=== PATIENT | female | born 2005 | race Caucasian/White ===

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

== ENCOUNTER 2025-02-15 12:00 | Outpatient (CLI) | payer BC, SELFPAY | END 2025-02-15 23:59 | disposition home or self-care (01) | LOC: LAB.DROPOF 02-17 08:12 | PROVIDERS: PCP Obstetrics & Gynecology; Visit Provider Obstetrics & Gynecology | DX: O36.5990 Maternal care for other known or suspected poor fetal growth, unspecified trimester, not applicable or unspecified (principal) | CPT/HCPCS: 86403 ==

== ENCOUNTER 2025-02-23 13:04 | Outpatient (CLI) | payer BC, SELFPAY ==
--- NOTE | 2025-02-23 13:00 | US_ITS ---
PROCEDURE: US OB BIOPHYSICAL PROFILE CLINICAL INDICATION: SGA w/CHIQUITA COMPARISON: US US OB MATER TRANSABD ADD from 09/20/2024 US US OB >= 14 WEEKS FETUS from 09/22/2024 US US OB /MATERNAL DETAIL from 10/26/2024 US US OB FOLLOW UP from 12/21/2024 FINDINGS: Transabdominal sonographic images of the uterus were obtained. From her established due date she is 37weeks 1day. The following parameters are obtained: Viable Fetus in the cephalic presentation with a posterior placenta grade 2. Cervix measures 3.87 cm in length Average ultrasound age is 36weeks 1day Estimated weight 2,885g, 6 lb 6 oz Measurements: heart Rate = 152bpm BPD = 36weeks 3days, 46 percentile HC = 35weeks 6days, 6 percentile AC = 36weeks 5days, 51 percent FL = 35weeks 3days, 12 percent HC/AC is 0.97 FL/BPD is 0.77 FL/AC is 0.21 33 percentile Amniotic fluid index: 9.26cm, MVP 4.18 cm Qualitative AFV:2 Breathing movements: 2 Gross Body Movements: 2 Tone: 2 Biophysical profile score: 8 Doppler evaluation of the umbilical artery: SD ratio: 2.25-2.53 normal Resistive index: 0.56 No obvious anomalies evident.Kidneys, profile, stomach, bladder, four-chamber heart, three-vessel cord appear normal. IMPRESSION: 1. Viable fetus in the cephalic presentation with a posterior placenta grade 2. 2. The fluid is within normal limits with an amniotic fluid index 9.26 cm, MVP 4.18 cm. 3. Biophysical profile is 8/8 with good breathing movement and movement seen. 4. SD ratio is normal 2.25-2.53. 5. There has been good interval growth with the fetus currently 33rd percentile. 6. Limited anatomical scan appears normal. Dictated by: Noel Mccormack MD 02/24/2025 09:12 Noel Mccormack MD in OV 02/24/2025 09:12
== END 2025-02-23 23:59 | disposition home or self-care (01) ==
LOC: RAD 13:04
PROVIDERS: PCP Family Medicine; Visit Provider Obstetrics & Gynecology
DX: O36.5930 Maternal care for other known or suspected poor fetal growth, third trimester, not applicable or unspecified (principal); Z3A.37 37 weeks gestation of pregnancy
CPT/HCPCS: 76816; 76819; 76820

== ENCOUNTER 2025-03-13 16:14 | Inpatient (IN) | payer BC, SELFPAY ==
[2025-03-13 16:20] VITALS: BMI 31.8
[2025-03-13 16:59] LABS: Hematocrit 33.6 % (37.0-47.0); Hemoglobin 10.9 g/dL (12.2-16.2); Immature Granulocytes % 0.4 %; Mean Corpuscular HGB Conc 32.4 g/dL (31.8-35.4); Mean Corpuscular Hemoglobin 26.4 pg (27.0-31.2); Mean Corpuscular Volume 81.4 fl (81-99); Nucleated Red Blood Cells % 0 %; Platelet Count 250 K/mm3 (142-424); Red Blood Count 4.13 M/mm3 (4.20-5.40); Red Cell Distribution Width-SD 42.1 fL; White Blood Count 10.9 K/mm3 (4.5-13.0)
[2025-03-13 17:31] VITALS: BP 136/79; PULSE 106; RESP 18; TEMP 37.2; O2SAT 98; BMI 31.8
[2025-03-13 20:04] VITALS: BP 125/76; PULSE 89; RESP 18; TEMP 36.8; O2SAT 98
[2025-03-14] MEDS: ONDANSETRON 4MG/2ML VIAL 4 MG IV ×3 (00:17→21:58)
[2025-03-14] MEDS: LACTATED RINGERS 1000ML 1,000 ML 250 ML IV (00:23)
[2025-03-14] MEDS: BUTORPHANOL TARTRATE 1 MG/ML VIAL IV ×2 (00:24→02:46)
[2025-03-14 00:56] VITALS: BP 123/74; PULSE 84; RESP 16; TEMP 36.7; O2SAT 99
[2025-03-14] MEDS: DEXTROSE 5%-LACTATED RINGERS 1,000 ML 125 ML IV (02:42)
--- NOTE | 2025-03-14 04:31 | EXP.ANES.CKL ---
[facility] Disclaimer: The information contained in this section may have been updated after the patient was seen, as this information can be updated by other users. Medical History Hydronephrosis of right kidney secondary to gravid uterus Flank pain in patient SGA (small for gestational age), , affecting care of mother, antepartum Constipation Vaginal bleeding during Nausea and vomiting during Anxiety disorder affecting , antepartum Panic attacks Anxiety Weight gain Emotional lability Surgical History History of placement of ear tubes Family History Other Alcoholism Cancer Diabetes Hypertension Thyroid disorder Social History (Updated 03/13/25 @ 20:09 by Marlene Valero RN) Smoking Status: Never smoker alcohol intake: never substance use type: denies use current occupational status: unemployed Travel in the last 8 weeks?: None [facility] Anesthesia Checklist Patient Identification Patient Identification: Arm Band Structural Data Admitted From: Inpatient Planned Operative Procedure/s: Labor Epidural Consent for Planned Operative Procedure(s) Verified: Yes Verified Documents: Surgical Consent and History and Physical NPO Status Verified Time NPO: 00:00 Additional verifications Anesthesia Reactions: No Neurological Assessment Level of Consciousness: Awake, Alert and Appropriate Anesthesia Plan Anesthesia Risk discussed: Yes Anesthesia Plan: Verified ASA Class: II Anesthesia Type: Epidural
[2025-03-14 04:40] VITALS: BP 119/51; PULSE 90; RESP 17; TEMP 36.9; O2SAT 100
--- NOTE | 2025-03-14 07:36 | EXP.OB.APHP ---
OB - H&P: HPI Antepartum History of Present Illness Chief complaint: Elective induction of labor History of present illness: Mrs Bettie Carrasquillo is a 19 yo [id number] who presents to [facility] L&D for scheduled elective induction of labor. She has had good care. complicated by anxiety. She admits to irregular contractions. No vaginal bleeding or leakage of fluid. GBS negative. History of Present Criteria for establishing EDC:: LMP confirmed by 1st trimester US care: good care Ultrasounds: normal mid trimester US Obstetrical complications: none Medical complications: none Labs Blood type: O (+) positive Rubella: immune RPR/VDRL: nonreactive GBS status: negative HBsAG: negative PFSH [facility] Disclaimer: The information contained in this section may have been updated after the patient was seen, as this information can be updated by other users. Medical History (Updated 03/14/25 @ 07:46 by Francy Negro DO) with 39 completed weeks gestation Encounter for elective induction of labor Hydronephrosis of right kidney Flank pain in patient Constipation Vaginal bleeding during Nausea and vomiting during Anxiety disorder affecting , antepartum Panic attacks Anxiety Weight gain Emotional lability Surgical History History of placement of ear tubes Family History Other Alcoholism Cancer Diabetes Hypertension Thyroid disorder Social History (Updated 03/14/25 @ 04:31 by Davin Carson CRNA) Smoking Status: Never smoker alcohol intake: never substance use type: denies use current occupational status: unemployed Travel in the last 8 weeks?: None Have you lived/traveled outside [place] in past 30 days?: No Contact w/someone who lives/traveled outside US past 30 days?: No Exposure to someone with infectious disease in past 14 days?: No Do you have a fever (greater than 100.4 F or 38 C)?: No Have you tested positive for COVID-19?: No Exposed to someone with COVID-19 in past 14 days?: No Do you have a sore throat?: No Do you have a cough?: No Do you have any weakness?: No Are you experiencing any nausea/vomitting?: No Do you have any diarrhea?: No Are you experiencing any unusual bleeding?: No Do you have any muscle aches/pain?: No Do you have any abdominal pain?: No Are you experiencing loss of taste or smell?: No Other Medical History Have you received the Flu Vaccine for this season: No Have you received the Pneumonia Vaccine: No Review of Systems Review of Systems Review of systems:: pertinent systems reviewed and negative unless documented below Meds Home Medications and Allergies Home Medications ?Medication ?Instructions ?Recorded ?Confirmed ?Type fluticasone propionate 50 50 mcg intranasal NEEDED PRN 06/01/24 03/13/25 History mcg/actuation nasal Allergy Symptoms spray,suspension metoclopramide HCl 10 mg tablet 10 mg PO Q8H PRN nausea and 09/19/24 03/13/25 Rx (Reglan) vomiting #30 tabs pantoprazole 40 mg tablet,delayed 40 mg PO DAILY #30 tabs 09/19/24 03/13/25 Rx release (Protonix) ondansetron 4 mg disintegrating 4 mg PO Q6H PRN nausea and 11/22/24 03/13/25 Rx tablet vomiting #30 tabs cyclobenzaprine 5 mg tablet 5 mg PO TID PRN muscle spasm #30 12/21/24 03/13/25 Rx tabs New Prescriptions to Start Prescriptions: Allergies Allergy/AdvReac Type Severity Reaction Status Date / Time No Known Allergies Allergy Verified 03/13/25 15:40 OB - H&P: Exam Physical Exam Vital signs: Temp Pulse Resp BP Pulse Ox O2 Del Method 98.5 F 90 17 119/51 L 100 Room Air 03/14/25 04:40 03/14/25 04:40 03/14/25 04:40 03/14/25 04:40 03/14/25 04:40 03/14/25 04:40 Constitutional no acute distress and cooperative Routine HEENT Exam Head: Present normocephalic and atraumatic Eye: Absent conjunctivae pink ENT: Present mucous membranes moist Routine Neck Exam Present full ROM Routine Respiratory Exam Present CTA bilaterally and normal respiratory effort Routine Cardiovascular Exam Present RRR Routine Abdominal Exam Present soft (Gravid); Absent tenderness Routine Rectal Exam Patient deferred: visual exam Routine Exam External: Present normal urethra appearance; Absent erythema, swelling, tenderness, lesions or lacerations Routine Extremities Exam Present full ROM; Absent edema or calf tenderness Routine Neurological Exam Present alert, moving all extremities and normal speech Routine Psychiatric Exam Present normal affect and cooperative Detailed Labor and Delivery Exam Dilation (cm): 6 Effacement (%): 90 Cervix position: mid station: -1 Consistency: soft Membranes: spontaneously ruptured Amniotic fluid: clear Baseline heart rate: 130 monitor accelerations: Present monitor decelerations: None admiralty lawyer variability: Moderate (11-25) Contraction frequency (min): 2 OB - Results Labs Labs: Short CBC 03/13/25 Range/Units 16:41 WBC 10.9 (4.5-13.0) K/mm3 Hgb 10.9 L (12.2-16.2) g/dL Hct 33.6 L (37.0-47.0) % Plt Count 250 (142-424) K/mm3 OB - A/P Antepartum (1) Encounter for elective induction of labor: Status: Acute (2) with 39 completed weeks gestation: Status: Acute (3) Anxiety disorder affecting , antepartum: Status: Acute (4) Hydronephrosis of right kidney: Problem details: secondary to gravid uterus Status: Acute Additional Plan Additional Information:: Admit to [facility] L&D for scheduled elective induction of labor Induction with Cytotec followed by Pitocin GBS negative Close monitoring IUPC inserted this morning Anticipate vaginal delivery
[2025-03-14] MEDS: SODIUM CHLORIDE 0.9% 10ML FLUSH SYRINGE 10 ML IV (07:41)
[2025-03-14 08:37] VITALS: BP 137/78; TEMP 36.9
[2025-03-14 08:39] VITALS: PULSE 101; RESP 16; O2SAT 99
[2025-03-14] MEDS: OXYTOCIN/RINGERS LACTATE 30 UNITS/500 ML BAG 999 UNITS IV (10:10)
--- NOTE | 2025-03-14 10:56 | P.PCN_ITS ---
Delivery Note Delivery Date:: 03/14/25 Delivery Time:: 10:06 Anesthesia Type: Epidural Was labor medically induced?: No Induction method: per misoprostol protocol Gestational age (weeks): 39 delivered prior to 39 weeks?: No Gender: Female at 1 minute: 8 at 5 minutes: 9 Delivery Procedure:: Mom complete with epidural. Pushed for approximately 30 minutes. Head delivered spontaneously over intact perineum in OA position. No nuchal cord. Anterior shoulder delivered with gentle downward pressure. Posterior shoulder and remainder of body delivered spontaneously. Baby placed on maternal abdomen, mouth and nares bulb suctioned, warmed/dried and stimulated. Delayed cord cl amping was performed for 60 seconds. Cord was clamped and cut by father of baby. Cord blood was obtained. Placenta delivered spontaneously and intact. Second degree perineal laceration repaired with 3-0 Vicryl. Hemostasis noted. Bilateral labial abrasions were hemostatic. Mom and baby were skin to skin and doing well after delivery. Live female baby (baby's name is Bruce) APGARs 8 (1 min), 9 (5 min) EBL 100 mL Placental Delivery Description: Spontaneous
[2025-03-14] MEDS: ACETAMINOPHEN 500MG TAB 1000 MG PO ×2 (11:00→16:53)
[2025-03-14] MEDS: IBUPROFEN 400 MG TABLET 800 MG PO ×2 (11:00→19:33)
[2025-03-14] MEDS: WITCH HAZEL 40 PADS/BOX 1 EACH TP (11:01)
[2025-03-14] MEDS: BENZOCAINE-MENTHOL SPRAY 56GM CAN TP (11:02)
[2025-03-14 15:14] LABS: RPR W/RFX Titers Nonreactive (Nonreactive)
[2025-03-14 20:00] VITALS: BP 149/71; PULSE 100; RESP 18; TEMP 36.9; O2SAT 100
[2025-03-14 21:25] VITALS: BP 128/75
--- NOTE | 2025-03-15 01:31 | PC.NURSE ---
Patient resting in bed, patient given and sandwich and drink. Denies any further needs. Call light within reach
[2025-03-15 04:25] VITALS: BP 119/58; PULSE 91; RESP 17; TEMP 36.8; O2SAT 99
[2025-03-15] MEDS: IBUPROFEN 400 MG TABLET 800 MG PO ×3 (04:32→22:06)
[2025-03-15] MEDS: ACETAMINOPHEN 500MG TAB 1000 MG PO ×4 (04:33→22:07)
[2025-03-15 06:25] LABS: Hematocrit 27.9 % (37.0-47.0); Hemoglobin 9.0 g/dL (12.2-16.2); Immature Granulocytes % 0.4 %; Mean Corpuscular HGB Conc 32.3 g/dL (31.8-35.4); Mean Corpuscular Hemoglobin 26.9 pg (27.0-31.2); Mean Corpuscular Volume 83.5 fl (81-99); Nucleated Red Blood Cells % 0 %; Platelet Count 207 K/mm3 (142-424); Red Blood Count 3.34 M/mm3 (4.20-5.40); Red Cell Distribution Width-SD 43.9 fL; White Blood Count 14.2 K/mm3 (4.5-13.0)
--- NOTE | 2025-03-15 08:47 | P.PN_ITS ---
Subjective *Date: 03/15/25 *Time: 08:47 Interval history: PPD # 1 s/p Feeling well. Pain controlled. Breast and formula feeding. Lochia is appropriate. Voiding without difficulty and passing flatus. Tolerating regular diet. Denies fever/chills, chest pain and shortness of breath. No headaches, vision changes, lightheadedness/dizziness. Admits to mild lower extremity swelling. No calf pain. Ambulating well ad emerson. Medical Exam Vital signs and Labs for Last 24 Hours: Vital Signs Temp Pulse Resp BP Pulse Ox O2 Del Method 03/15/25 04:25 98.2 F 91 H 17 119/58 L 99 Room Air 03/14/25 21:25 128/75 03/14/25 20:00 98.5 F 100 H 18 149/71 H 100 Room Air Intake and Output 03/14/25 03/15/25 03/15/25 23:59 07:59 15:59 Intake Total 250 / 2500.000 Balance 250 / 900.000 Intake: Intake, Total IV Amount 250 / 2500.000 Oxytocin/Ringers Lactate 30 250 / 500 units In 500 ml @ 40 mls/hr IV .[id number] [facility] Rx#:[id number] Laboratory Results - last 24 hr 03/13/25 16:41: RPR w/Rflx to Titer Nonreactive 03/15/25 05:48: WBC 14.2 H D, RBC 3.34 L, Hgb 9.0 L, Hct 27.9 L, MCV 83.5, MCH 26.9 L, MCHC 32.3, RDW 14.6, Plt Count 207, MPV 11.6 H, Neut % (Auto) 77.3, Lymph % (Auto) 15.6, [place] % (Auto) 6.0, Eos % (Auto) 0.5, Baso % (Auto) 0.2, Neut # (Auto) 10.9 H, Lymph # (Auto) 2.2, [place] # (Auto) 0.9, Eos # (Auto) 0.1, Baso # (Auto) 0.0 I & O for Labs for Last 24 Hours: Intake & Output 03/12/25 03/13/25 03/14/25 03/15/25 23:59 23:59 23:59 23:59 Intake Total 2500.000 / 2500.000 Output Total 1600 / 1600 Balance 900.000 / 900.000 Weight 180 lb Head: Present atraumatic and normocephalic ENT: Present normal exam Neck: Present normal inspection and full ROM Respiratory: Present CTA bilaterally and normal respiratory effort Cardiac: Present Reg Rate and Rhythm GI: Present soft; Absent distention or tenderness Comments:: Uterine fundus below umbilicus Rectal (female): Present deferred (female): Present deferred Extremities: Present normal inspection and full ROM Neuro: Present alert, awake and moves all extremities Assessment and Plan *Assessment and plan (1) Status post normal vaginal delivery: Status: Acute Category: Medical (2) Encounter for elective induction of labor: Status: Acute Category: Medical Code(s): Z34.90 - Encounter for supervision of normal , unspecified, unspecified trimester (3) with 39 completed weeks gestation: Status: Acute Category: Medical Code(s): Z3A.39 - 39 weeks gestation of (4) Anxiety: Status: Acute Category: Medical Code(s): F41.9 - Anxiety disorder, unspecified (5) Acute blood loss anemia: Status: Acute Category: Medical Code(s): D62 - Acute posthemorrhagic anemia Plan Continue routine care Encouraged increased ambulation AM Hgb 9.0 (10.9 on admission) -- Venofer 200 mg IV x 1 dose Plan d/c home tomorrow, PPD # 2
[2025-03-15] MEDS: IRON SUCROSE COMPLEX 200 MG in 0.9 % SODIUM CHLORIDE 100 ML 220 MG IV (10:02)
[2025-03-15] MEDS: FERROUS SULFATE 325MG TABLET 325 MG PO (10:48)
[2025-03-15] MEDS: PRENATAL MULTIVITAMIN W/IRON 1 EACH PO (16:18)
[2025-03-15 20:04] VITALS: BP 135/62; PULSE 96; RESP 18; TEMP 36.9; O2SAT 99
[2025-03-16 05:01] VITALS: BP 114/56; PULSE 78; RESP 18; TEMP 36.9; O2SAT 99
[2025-03-16] MEDS: ACETAMINOPHEN 500MG TAB 1000 MG PO (05:08)
[2025-03-16] MEDS: SENNA 8.6MG TABLET 8.6 MG PO (05:08)
[2025-03-16] MEDS: IBUPROFEN 400 MG TABLET 800 MG PO (09:00)
[2025-03-16] MEDS: FERROUS SULFATE 325MG TABLET 325 MG PO (09:00)
[2025-03-16] MEDS: WITCH HAZEL 40 PADS/BOX 1 EACH TP (11:30)
--- NOTE | 2025-03-16 12:05 | P.DS_ITS ---
General Admission date:: 03/13/25 Discharge date: 03/16/25 HPI HPI HPI: PPD # 2 s/p Feeling well. Pain controlled. Breast and formula feeding. Lochia is light. Voiding without difficulty and passing flatus. Tolerating regular diet. Denies fever/chills, chest pain and shortness of breath. No headaches, vision changes, lightheadedness/dizziness. Admits to mild lower extremity swelling. No calf pain. Ambulating well ad emerson. Hospital Course Hospital Course Hospital Course: Mrs Bettie Carrasquillo is a 19 yo [id number] 39w6d who presents to [facility] L&D for scheduled elective induction of labor. She has had good care. complicated by anxiety. She admits to irregular contractions. No vaginal bleedi ng or leakage of fluid. GBS negative. She underwent induction of labor with Cytotec. She had a normal spontaneous vaginal delivery on 03/14/25 at 1006. She delivered a live female baby, Bruce, weighing 6 lb 11 oz. APGARs 8 (1 min), 9 (5 min) EBL 100 mL. She did well . Pain controlled. Breast and formula feeding. Light lochia. Voiding without difficulty and passing flatus. Tolerating regular diet. Denies fever/chills, chest pain and shortness of breath. No headaches, dizziness/lightheadedness or vision changes. Vital signs stable, afebrile. Heart regular rate and rhythm. Lungs clear to auscultation. Abdomen soft, nontender. +1 bilateral lower extremity edema. No calf pain. Ambulating well ad emerson. PPD # 1 Hgb was 9.0. Venofer 200 mg IV x 1 dose was ordered but IV access was lost and Bettie declined attempt at IV access. She was started on ferrous sulfate 325 mg PO daily. Normal hospital course. She was discharged to home on POD # 2 with instructions to follow-up in the office in 2 weeks or sooner if needed. Exam Data for Last 24 hours Vital signs and Labs for Last 24 Hours: Temp Pulse Resp BP Pulse Ox O2 Del Method 98.4 F 78 18 114/56 L 99 Room Air 03/16/25 05:01 03/16/25 05:01 03/16/25 05:01 03/16/25 05:01 03/16/25 05:01 03/16/25 05:01 I & O for Last 24 hours: Intake & Output 03/13/25 03/14/25 03/15/25 03/16/25 23:59 23:59 23:59 23:59 Intake Total 2500.000 / 2500.000 47.667 / 47.667 Output Total 1600 / 1600 Balance 900.000 / 900.000 47.667 / 47.667 Weight 180 lb Constitutional Constitutional: no acute distress and cooperative *Routine HEENT Exam Head: Present normocephalic and atraumatic Eye: Absent conjunctivae pink ENT: Present mucous membranes moist *Routine Neck Exam Neck: Present full ROM *Routine Respiratory Exam Respiratory: Present CTA bilaterally and normal respiratory effort *Routine Cardiovascular Exam Cardiovascular: Present RRR *Routine Abdominal Exam Abdominal: Present soft; Absent tenderness or distended *Routine Rectal Exam Patient deferred: visual exam *Routine Exam Patient deferred: external exam *Routine Extremities Exam Extremities: Present edema (+1 bilateral lower extremity edema) and full ROM; Absent calf tenderness *Routine Neurological Exam Neurological: Present alert, moving all extremities and normal speech Routine Psychiatric Exam Psychiatric: Present normal affect and cooperative DS: Diagnosis Discharge Diagnosis (1) Status post normal vaginal delivery: Status: Acute (2) Encounter for elective induction of labor: Status: Acute Code(s): Z34.90 - Encounter for supervision of normal , unspecified, unspecified trimester (3) with 39 completed weeks gestation: Status: Acute Code(s): Z3A.39 - 39 weeks gestation of (4) Anxiety: Status: Acute Code(s): F41.9 - Anxiety disorder, unspecified (5) Acute blood loss anemia: Status: Acute Code(s): D62 - Acute posthemorrhagic anemia Meds Home Medications and Allergies Home Medications ?Medication ?Instructions ?Recorded ?Confirmed ?Type fluticasone propionate 50 50 mcg intranasal NEEDED PRN 06/01/24 03/13/25 History mcg/actuation nasal Allergy Symptoms spray,suspension pantoprazole 40 mg tablet,delayed 40 mg PO DAILY #30 t abs 09/19/24 03/13/25 Rx release (Protonix) ferrous sulfate 325 mg (65 mg 325 mg PO DAILY #30 tabs 03/16/25 Rx iron) tablet ibuprofen 800 mg tablet 800 mg PO Q8H PRN pain #20 t abs 03/16/25 Rx New Prescriptions to Start Prescriptions: ferrous sulfate Francy Negro ibuprofen Francy Negro Allergies Allergy/AdvReac Type Severity Reaction Status Date / Time No Known Allergies Allergy Verified 03/13/25 15:40 Discharge Plan Disposition Patient Disposition: Home, Self-Care Condition: Good Discharge Order Discharge Orders: Discharge Order (Routine); Ordered 03/16/25 Ordered By: Francy Negro Follow up Plan Follow up with: Francy Negro DO [Staff Physician, ADULT SCHOOL COUNSELOR] - 03/27/25 11:00 am Prescriptions/Medication Reconciliation: New ferrous sulfate 325 mg (65 mg iron) Tablet 325 mg PO DAILY Qty: 30 0RF ibuprofen 800 mg tablet 800 mg PO Q8H PRN (Reason: pain) Qty: 20 0RF Continued fluticasone propionate 50 mcg/actuation spray,suspension 50 mcg intranasal NEEDED PRN (Reason: Allergy Symptoms) Patient Comments: USE 1-2 SPRAYS IN EACH NOSTRIL DAILY NEEDED pantoprazole [Protonix] 40 mg tablet,delayed release (DR/EC) 40 mg PO DAILY Qty: 30 2RF Problem Reconciliation Problems Reviewed?: Yes Patient Discharge Instructions ACTIVITY: Limited activity DIET: continue same diet and regular diet Additional Instructions: Congratulations!! Discharge: 1. Take 800 mg Ibuprofen every 8 hours as needed for pain. 2. Nothing in the vagina for 6 weeks - no intercourse, douching or tampons. No tub baths/hot tubs or swimming pools 3. Reasons to return to L&D or call On-Call doctor - fever (greater than 100.4) - heavy vaginal bleeding (soaking through 1 pad in less than 2 hours) - vaginal discharge (malodorous and/or purulent) - severe headaches not resolved by medication or rest and leg tenderness 4. depression/blues - Normal to feel anxious/overwhelmed for first 2 weeks - Talk to your doctor if: severe anxiety, trouble bonding with baby, withdrawing from other family members, thoughts of harming yourself or others Francy Negro DO [facility] [phone] Patient Instructions: Depression, Hemorrhage, DI for Labor and Delivery, Vaginal , DI for Pre-eclampsia, [facility] Post Discharge Instructions Print Language: Portuguese Providers Primary Care Provider: Bárbara Wagner Admit Provider: Francy Negro Attending Provider: Francy Negro
--- NOTE | 2025-03-16 12:49 | PC.NURSE ---
Acetaminophen (Acetaminophen 500mg Tab) 1,000 mg PO Q6HP PRN PRN Reason: Mild to Moderate Pain (1-6) Stop: 04/13/25 10:54 Last Admin: 03/16/25 05:08 Dose: 1,000 mg Al Hydrox/Mg Hydrox/Simethicone (Aluminum/Magnesium/Simethicone 30ml Udc) 30 ml PO Q4HP PRN PRN Reason: Dyspepsia Stop: 04/13/25 10:54 Benzocaine/Menthol (Benzocaine-Menthol [place] 56gm Can) 0 gm TP NEEDED PRN PRN Reason: Vaginal Irritation Stop: 04/13/25 10:54 Last Admin: 03/14/25 11:02 Dose: 1 unspec Butorphanol Tartrate (Butorphanol Tartrate 1 Mg/Ml Vial) 1 mg IV Q2HP PRN PRN Reason: Moderate to Severe Pain (4-10) Stop: 04/12/25 22:27 Last Admin: 03/14/25 02:46 Dose: 1 mg Diphenhydramine HCl (Diphenhydramine 25mg Capsule) 25 mg PO Q6HP PRN PRN Reason: Itching Stop: 04/13/25 10:54 Emollient Ointment (Lanolin Cream 40gm) 0 gm TP NEEDED PRN PRN Reason: Breast Tenderness Stop: 04/13/25 10:54 Ferrous Sulfate (Ferrous Sulfate 325mg Tablet) 325 mg PO DAILY RAMON Stop: 04/15/25 10:44 Last Admin: 03/16/25 09:00 Dose: 325 mg Glycerin (Glycerin Adult 3gm Supp) 3 gm RC NEEDED PRN PRN Reason: Constipation Stop: 04/13/25 10:54 Ibuprofen (Ibuprofen 400 Mg Tablet) 800 mg PO Q8HP PRN PRN Reason: Mild to Moderate Pain (1-6) Stop: 04/13/25 10:54 Last Admin: 03/16/25 09:00 Dose: 800 mg Measles/Mumps/Rubella Vaccine Live (Measles,Mumps,Rubella Vaccine Vial) 0.5 ml SUBCUT NEEDED PRN PRN Reason: Immunization Stop: 04/14/25 10:54 Nicotine (Nicotine 21mg/24hr Patch) 21 mg TD DAILYP PRN PRN Reason: Smoking Cessation Stop: 04/13/25 10:54 Ondansetron HCl (Ondansetron 4mg/2ml Vial) 4 mg IV Q6HP PRN PRN Reason: Nausea Stop: 04/12/25 16:19 Last Admin: 03/14/25 21:58 Dose: 4 mg Multivit/Folic Acid/Iron ( Multivitamin W/Iron) 1 each PO 1700 RAMON Stop: 04/13/25 16:59 Last Admin: 03/15/25 16:18 Dose: 1 each Promethazine HCl (Promethazine Hcl 25mg/Ml 1ml Vial) 12.5 mg IV Q6HP PRN PRN Reason: Nausea And Vomiting Stop: 04/12/25 16:19 Promethazine HCl (Promethazine 25mg Tablet) 25 mg PO Q4HP PRN PRN Reason: Nausea And Vomiting Stop: 04/13/25 10:54 Sennosides (Senna 8.6mg Tablet) 8.6 mg PO BIDP PRN PRN Reason: Constipation Stop: 04/13/25 10:54 Last Admin: 03/16/25 05:08 Dose: 8.6 mg Simethicone (Simethicone 80mg Chewable Tablet) 160 mg PO Q4HP PRN PRN Reason: Gas Pain and Discomfort Stop: 04/13/25 10:54 Sodium Chloride (Sodium Chloride 0.9% 25ml Bag) 25 ml IV NEEDED PRN PRN Reason: for Use with IV Promethazine Stop: 04/12/25 16:19 Sodium Chloride (Sodium Chloride 0.9% 10ml Flush Syringe) 10 ml IV NEEDED PRN PRN Reason: Maintain IV Site Stop: 04/13/25 04:30 Tetanus/Reduced Diphtheria/Acell Pertussis (Tet/Diphth/Pert-Adult 0.5ml Syringe) 0.5 ml IM NEEDED PRN PRN Reason: Immunization Stop: 04/14/25 10:54 Witch Edelmira (Witch Edelmira 40 Pads/Box) 1 each TP NEEDED PRN PRN Reason: Hemorrhoids Stop: 04/13/25 10:54 Last Admin: 03/16/25 11:30 Dose: 1 each
== END 2025-03-16 14:30 | disposition home or self-care (01) | DRG 806 ==
PROVIDERS: Admitting Provider Obstetrics & Gynecology; PCP Family Medicine; Visit Provider Obstetrics & Gynecology
DX: O99.344 Other mental disorders complicating childbirth (principal); D62 Acute posthemorrhagic anemia; Z37.0 Single live birth; N13.30 Unspecified hydronephrosis; F41.9 Anxiety disorder, unspecified; Z3A.39 39 weeks gestation of pregnancy; O99.03 Anemia complicating the puerperium; O70.1 Second degree perineal laceration during delivery; O71.89 Other specified obstetric trauma; O99.892 Other specified diseases and conditions complicating childbirth; Z53.20 Procedure and treatment not carried out because of patient's decision for unspecified reasons; Z23 Encounter for immunization; Z79.899 Other long term (current) drug therapy
CPT/HCPCS: 36415; 51702; 59025; 85025; 86592; 86850; 94761; C1758; J0595; J0665; J1756; J2003; J2405; J2795; J3010; J7120; J7121

== ENCOUNTER 2025-03-20 14:58 | Emergency (ER) | payer BC, SELFPAY ==
[2025-03-20 15:03] VITALS: BP 136/76; PULSE 92; RESP 15; TEMP 36.8; O2SAT 100; BMI 27.6
[2025-03-20 15:09] VITALS: BP 136/77; PULSE 89; RESP 18; O2SAT 100
--- NOTE | 2025-03-20 15:17 | ED_ITS ---
<Statement entered by Elieser Castro MD - 03/20/25 19:26> I was consulted by the LATHA, and we discussed the complexity of the problems being addressed. I approve the treatment and management plan for this patient's care in the emergency department, thus performing a substantive portion of the medical decision making. Elieser Castro MD Discharge Plan Disposition Patient Disposition: Home, Self-Care Condition: Good Prescriptions Prescriptions: No Action fluticasone propionate 50 mcg/actuation spray,suspension 50 mcg intranasal NEEDED PRN (Reason: Allergy Symptoms) Patient Comments: USE 1-2 SPRAYS IN EACH NOSTRIL DAILY NEEDED pantoprazole [Protonix] 40 mg tablet,delayed release (DR/EC) 40 mg PO DAILY Qty: 30 2RF ferrous sulfate 325 mg (65 mg iron) Tablet 325 mg PO DAILY Qty: 30 0RF ibuprofen 800 mg tablet 800 mg PO Q8H PRN (Reason: pain) Qty: 20 0RF Referrals Follow up/Referrals: Bárbara Wagner DO [Primary Care Provider, Medical] - See instructions Francy Negro DO [Staff Physician, TAPE FASTENER MACHINE OPERATOR] - See instructions Referral Note: Please follow-up with TAPE FASTENER MACHINE OPERATOR on Activity Restrictions/Add. Instructions Additional Instructions/Restrictions: Please return to the emergency department with any worsening signs or symptoms. Please keep your follow-up with TAPE FASTENER MACHINE OPERATOR doctor on . I recommend utilizing ibuprofen and acetaminophen as needed for symptomatic relief. Clinical Impressions Clinical Impression: Headache Instructions Patient Instructions: DI for Headache Print Language Print Language: Upper Sorbian Discharge ED Provider: Elieser Castro General Adult HPI General Chief complaint: Headache Stated complaint: sent by Dr Negro, 6 days pp, 24 hr migraine Time Seen by Provider: 03/20/25 15:17 Mode of Arrival: Ambulatory Source of Information: Patient Description of Symptoms (Recalled from ER Triage Doc. by RN): patient presents to the ED with cheif complaint of high blood pressure and a high blood pressure. paitent states she is 6 days , had a normal vaginal delivery and did have an epidural. patient stated she is taking prescribed tyleno and motrin. History of Present Illness HPI narrative: 19 yo female at approximately 6 days , from uncomplicated vaginal delivery, born at full-term infant, currently breast-feeding, presents to the emergency department with bilateral frontal headache that started yesterday, with associated dizziness , started today, patient denies any real lightheadedness no fever no chills, no nausea no vomiting, no constipation no diarrhea no photophobia no phonophobia, no blurry vision or double vision, patient is taken Motrin prior to arrival which did have some relief of her symptomatology. Of note, patient did have epidural on 3 AM on 03/14/2025 , uncomplicated, no abdominal pain no urinary symptomatology, no diarrhea no constipation, patient denies any alcohol tobacco or drug use, no radiculopathy no numbness or tingling, no saddle anesthesia, no urinary bladder or bowel dysfunction, headache is nonpositional,. Patient is only on iron supplementation, but has no other relevant past medical history taking no other medications daily at home and history as vitals are unremarkable. Please note that above description of symptoms, in this electronic medical record under categorization of recalled from ER triage doctor by RN are reflective of an initial nursing assessment, however, is not reflective of my full history and physical exam that was personally taken and clarified. Consequentially, this preceding description of symptoms, which may include the patient's categorized chief complaint in the EMR, do not reflect my personal clinical impression, and the ultimate description of history of present illness and patient stated complaints should be deferred to this section of the note. Unless stated otherwise or congruent with this section of the note, additional signs, symptoms, or incongruence should be interpreted as inaccurate with my clinical impression. Onset (ago): day(s) Related Data Home Medications ?Medication ?Instructions ?Recorded ?Confirmed fluticasone propionate 50 50 mcg intranasal NEEDED PRN 06/01/24 03/13/25 mcg/actuation nasal Allergy Symptoms spray,suspension Previous Rx's ?Medication ?Instructions ?Recorded pantoprazole 40 mg tablet,delayed 40 mg PO DAILY #30 t abs 09/19/24 release (Protonix) ferrous sulfate 325 mg (65 mg 325 mg PO DAILY #30 tabs 03/16/25 iron) tablet ibuprofen 800 mg tablet 800 mg PO Q8H PRN pain #20 t abs 03/16/25 Allergies Allergy/AdvReac Type Severity Reaction Status Date / Time No Known Allergies Allergy Verified 03/13/25 15:40 [facility] Disclaimer: The information contained in this section may have been updated after the patient was seen, as this information can be updated by other users. Medical History (Updated 03/20/25 @ 17:52 by BREANNE Avilez) Acute blood loss anemia Status post normal vaginal delivery with 39 completed weeks gestation Encounter for elective induction of labor Hydronephrosis of right kidney Flank pain in patient Constipation Vaginal bleeding during Nausea and vomiting during Anxiety disorder affecting , antepartum Panic attacks Anxiety Weight gain Emotional lability Surgical History History of placement of ear tubes Family History Other Alcoholism Cancer Diabetes Hypertension Thyroid disorder Social History (Updated 03/14/25 @ 04:31 by Davin Carson CRNA) Smoking Status: Never smoker alcohol intake: never substance use type: denies use current occupational status: unemployed Travel in the last 8 weeks?: None Have you lived/traveled outside US in past 30 days?: No Contact w/someone who lives/traveled outside US past 30 days?: No Exposure to someone with infectious disease in past 14 days?: No Do you have a fever (greater than 100.4 F or 38 C)?: No Have you tested positive for COVID-19?: No Exposed to someone with COVID-19 in past 14 days?: No Do you have a sore throat?: No Do you have a cough?: No Do you have any weakness?: No Do you have any diarrhea?: No Are you experiencing any unusual bleeding?: No Do you have any muscle aches/pain?: No Do you have any abdominal pain?: No Are you experiencing loss of taste or smell?: No Other Medical History Have you received the Flu Vaccine for this season: No Have you received the Pneumonia Vaccine: No ROS Obtained: Yes All systems reviewed & no additional complaints except as documented Physical Exam General General appearance: alert and in no apparent distress Head Head exam: atraumatic and normocephalic Eye Eye exam: Present PERRL and EOMI ENT ENT exam: Present mucous membranes moist Neck Neck exam: Present normal inspection Chest Chest inspection: Present normal inspection and symmetric chest wall rise Respiratory Respiratory exam: Present normal lung sounds bilaterally; Absent respiratory distress Cardiovascular Cardiovascular exam: Present regular rate and normal rhythm Abdominal Exam Abdominal exam: Present soft; Absent tenderness Extremities Exam Extremities exam: Present normal inspection Back Exam Back exam: Present full ROM and paraspinal tenderness; Absent vertebral tenderness Neurological Exam Neurological exam: Present alert, oriented X3 and other (No difficulty with ambulation, no gross sensation deficit, no focal neurological deficit is present on exam.) Psychiatric Psychiatric exam: Present normal affect Skin Skin exam: Present warm and dry Medical Decision Making Medical Records Medical records reviewed: Yes I reviewed the patient's medical records. Screening: Per USPSTF and CDC recommendations, given the prevalence of disease in our region, it is our hospital?s policy to screen for HIV and viral Hepatitis for all patients aged 18 and over and those with ongoing risk factors. Preet Inquiry Pt receiving controlled substance: No Preet was queried for this patient: No Vital Signs: 03/20/25 15:03 03/20/25 15:09 Temperature 98.2 F Temperature Source Oral Pulse Rate 89 Pulse Rate [Right Radial] 92 H Respiratory Rate 15 18 Blood Pressure 136/77 Blood Pressure [Right Arm] 136/76 Blood Pressure Mean [Right Arm] 96 Blood Pressure Source Automatic Cuff Blood Pressure Source [Right Arm] Automatic Cuff Blood Pressure Position Sitting Blood Pressure Position [Right Arm] Sitting 02 Sat by Pulse Oximetry 100 100 Oxygen Delivery Method Room Air Room Air Lab Data Lab results reviewed: Yes I reviewed the patient's lab results. Lab Results 03/20/25 16:10: WBC 9.4, RBC 4.35, Hgb 11.6 L, Hct 36.7 L, MCV 84.4, MCH 26.7 L, MCHC 31.6 L, RDW 15.3, Plt Count 318, MPV 10.4, Neut % (Auto) 69.7, Lymph % (Auto) 21.9, [place] % (Auto) 5.8, Eos % (Auto) 1.9, Baso % (Auto) 0.4, Neut # (Auto) 6.6, Lymph # (Auto) 2.1, [place] # (Auto) 0.6, Eos # (Auto) 0.2, Baso # (Auto) 0.0, Sodium 140, Potassium 3.6, Chloride 106, Carbon Dioxide 25, Anion Gap 12.6, BUN 8, Creatinine 0.50 L, Estimated Creat Clear 202, Estimated GFR 159, Est GFR ( Amer) 192, Glucose 85, Uric Acid 6.4 H, Calcium 8.8, Magnesium 2.0, Total Bilirubin 0.7, AST 21, ALT 16, Alkaline Phosphatase 131 H, Lactate Dehydrogenase 202 L, Total Protein 6.8, Albumin 4.0, Globulin 2.8, Albumin/Globulin Ratio 1.4, Urine Color Yellow, Urine Appearance Clear, Urine pH 6.0, Ur Specific [place] 1.020, Urine Protein Trace, Urine Glucose (UA) Negative, Urine Ketones Trace, Urine Blood 3+ A, Urine Nitrate Negative, Urine Bilirubin Negative, Urine Urobilinogen 2.0, Ur Leukocyte Esterase 2+ A 03/20/25 16:10 03/20/25 16:10 Orders (Tests/Meds): ED MEDICATIONS Discontinued Medications Generic Name Dose Route Start Last Admin Trade Name Freq PRN Reason Stop Dose Admin Acetaminophen 1,000 mg 03/20/25 15:35 03/20/25 16:17 Acetaminophen 1,000mg/100ml Vial IV 03/20/25 15:36 1,000 mg ONCE ONE Administration Iopamidol 80 ml 03/20/25 16:29 03/20/25 16:30 Iopamidol-370 (76%);100ml Bottle IV 03/20/25 16:30 80 ml ONCE ONE Administration Sodium Chloride 50 ml 03/20/25 16:29 03/20/25 16:30 0.9 % Sodium Chloride 50 Ml Vial IV 03/20/25 16:30 50 ml ONCE ONE Administration Sodium Chloride 10 ml 03/20/25 16:29 03/20/25 16:30 Sodium Chloride 0.9% 10ml Syr (Rad Only) IV 03/20/25 16:30 10 ml ONCE ONE Administration ORDERS Category Date Time Status CT Venogram head Stat Cat Scan 03/20/25 15:[address] head/brain wo con Stat Cat Scan 03/20/25 15:35 Completed Complete Blood Count Auto Diff Stat Lab 03/20/25 16:10 Completed Comprehensive Metabolic Panel Stat Lab 03/20/25 16:10 Completed LDH [Lactate Dehydrogenase] Stat Lab 03/20/25 16:10 Completed Magnesium Stat Lab 03/20/25 16:10 Completed Uric Acid Stat Lab 03/20/25 16:10 Completed Urinalysis and Microscopic Stat Lab 03/20/25 16:10 Results Urine Culture Stat Micro 03/20/25 16:10 Received Medical Decision Narrative: 19-year-old female who is 6 days , presents emergency department with a 1 day headache differential diagnose include but not limited to, preeclampsia, tension headache, cluster headache, migraine with aura, migraine without aura, cerebral venous sinus thrombosis among others I discussed this patient's case with the attending physician Dr. Castro Will obtain basic laboratory studies, LDH, UA, uric acid level, exam level, will give 1 g IV Tylenol, and obtain CT head without contrast and CT venogram. CBC notable for hemoglobin of 11.6, hematocrit 36.7, which is improved from CMP is unremarkable LDH is 202, uric acid level is minimally elevated at 6.4 otherwise unremarkable CMP. There is trace proteinuria, 3+ hematuria, 2+ leukocyte esterase, negative nitrites I reviewed the patient's CT head without contrast on the corresponding radiologic report, no acute intracranial abnormality is seen I reviewed the patient's CT venogram along the corresponding radiologic report, no evidence of dural venous thrombosis. I discussed these results with the on-call TAPE FASTENER MACHINE OPERATOR Dr. Green approximately 5:47 PM, she is agreement with current discharge plan/treatment plan. Patient will follow-up in the TAPE FASTENER MACHINE OPERATOR clinic on . I discussed the results with the patient family the bedside patient and family are in agreement with current discharge plan/treatment plan. Patient is feeling better after her IV medication. Patient will follow-up with TAPE FASTENER MACHINE OPERATOR clinic in the upcoming days. Strict return precautions given. Patient family voiced understanding. Critical Care Critical Care Time Critical Care Time: No
--- NOTE | 2025-03-20 15:28 | PC.NURSE ---
Pt expressed the need to pump upon arrival. A manual pump as well as a hospital electric pump was offered and the pt was told it would be a charge, but the pt refused due to not wanting to be charged for the pump. RN also offered many other alternatives, and assistance with manual expression/ teaching on how, but pt refused alternative methods as well.
--- NOTE | 2025-03-20 15:35 | CT_ITS ---
PROCEDURE INFORMATION: Exam: CT Head Without Contrast Exam date and time: 03/20/2025 4:29 PM Age: 19 years old Clinical indication: Pain; Headache; Additional info: 6 days frontal headache TECHNIQUE: Imaging protocol: Computed tomography of the head without contrast. Radiation optimization: All CT scans at this facility use at least one of these dose optimization techniques: automated exposure control; mA and/or kV adjustment per patient size (includes targeted exams where dose is matched to clinical indication); or iterative reconstruction. COMPARISON: No relevant prior studies available. FINDINGS: Brain: No hemorrhage. Unremarkable white matter for the patient's age. No mass effect. No evolving territorial infarct. Cerebral ventricles: No ventriculomegaly. Paranasal sinuses: Visualized sinuses are unremarkable. No fluid levels. Mastoid air cells: Visualized mastoid air cells are well aerated. Bones: Unremarkable. No acute fracture. Soft tissues: Unremarkable. IMPRESSION: No acute intracranial abnormality seen.
--- NOTE | 2025-03-20 15:36 | CT_ITS ---
PROCEDURE INFORMATION: Exam: CTA Head With Contrast, Venography Exam date and time: 03/20/2025 4:32 PM Age: 19 years old Clinical indication: Pain; Headache; Additional info: 6 days frontal TAVERAS, had epidural TECHNIQUE: Imaging protocol: Computed tomography angiography of the head with contrast. Exam focused on the veins. 3D rendering (Not supervised by radiologist): MIP and/or 3D reconstructed images were created by the technologist. Radiation optimization: All CT scans at this facility use at least one of these dose optimization techniques: automated exposure control; mA and/or kV adjustment per patient size (includes targeted exams where dose is matched to clinical indication); or iterative reconstruction. Contrast material: ISOVUE; Contrast volume: 80 ml; Contrast route: INTRAVENOUS (IV); COMPARISON: CT HEAD/BRAIN WO CON 03/20/2025 4:29 PM FINDINGS: Superior sagittal sinus: Patent. Straight sinus: Patent. Transverse sinuses: Patent. Sigmoid sinuses: Patent. Internal jugular veins: Limited visualized internal jugular veins are patent. Brain: No definite mass, mass effect, or midline shift. Cerebral ventricles: No ventriculomegaly. Soft tissues: Unremarkable. IMPRESSION: No evidence of dural venous thrombus.
[2025-03-20] MEDS: ACETAMINOPHEN 1,000MG/100ML VIAL 1000 MG IV (16:17)
[2025-03-20 16:20] LABS: Microscopic, Urine URINE MICROSCOPIC (MICROSCOPIC)
[2025-03-20 16:22] LABS: Hematocrit 36.7 % (37.0-47.0); Hemoglobin 11.6 g/dL (12.2-16.2); Immature Granulocytes % 0.3 %; Mean Corpuscular HGB Conc 31.6 g/dL (31.8-35.4); Mean Corpuscular Hemoglobin 26.7 pg (27.0-31.2); Mean Corpuscular Volume 84.4 fl (81-99); Nucleated Red Blood Cells % 0 %; Platelet Count 318 K/mm3 (142-424); Red Blood Count 4.35 M/mm3 (4.20-5.40); Red Cell Distribution Width-SD 46.1 fL; White Blood Count 9.4 K/mm3 (4.5-13.0)
[2025-03-20] MEDS: IOPAMIDOL-370 (76%);100ML BOTTLE 80 ML IV (16:30)
[2025-03-20] MEDS: SODIUM CHLORIDE 0.9% 10ML SYR (RAD ONLY) 10 ML IV (16:30)
[2025-03-20] MEDS: 0.9 % SODIUM CHLORIDE 50 ML VIAL IV (16:30)
[2025-03-20 16:32] LABS: Bilirubin,Urine Negative (Negative); Color,Urine YELLOW (Yellow); Glucose,Urine (UA) Negative (Negative); Ketones,Urine TRACE (Negative); Leukocyte Esterase,Urine 2+ (Negative); PH,Urine 6.0 (5.0-8.5); Protein,Urine TRACE (Negative); Specific Gravity, Urine 1.020 (1.005-1.030); Urobilinogen,Urine 2.0 EU/dl (0.2)
[2025-03-20 16:36] LABS: Alanine Aminotransferase 16 U/L (12-78); Albumin Level 4.0 g/dl (3.5-5.0); Albumin/Globulin Ratio 1.4 (1.1-1.8); Alkaline Phosphatase 131 U/L (38-126); Anion Gap 12.6 mEq/L (5-15); Aspartate Amino Transferase 21 U/L (14-36); Bilirubin,Total 0.7 mg/dl (0.2-1.3); Blood Urea Nitrogen 8 mg/dl (7-17); Calcium 8.8 mg/dl (8.4-10.2); Carbon Dioxide 25 mmol/L (22.0-30.0); Chloride 106 mmol/L (98-107); Creatinine Clearance Estimated 202 mL/min (50-200); Creatinine,Serum 0.50 mg/dl (0.52-1.04); Estimated Glomerular Filt Rate 159 ml/min (>60); GFR (African American) 192 ML/MIN (>60); Globulin 2.8 g/dL (1.3-3.2); Glucose 85 mg/dl (74-100); Magnesium 2.0 mg/dl (1.6-2.3); Potassium 3.6 mmoL/L (3.5-5.1); Sodium 140 mmol/L (136-145); Total Protein,Serum 6.8 g/dl (6.3-8.2)
[2025-03-20 16:57] LABS: Uric Acid 6.4 mg/dl (2.5-6.2)
[2025-03-20 18:06] VITALS: BP 130/80; PULSE 80; RESP 18; TEMP 36.7
[2025-03-20 18:36] LABS: Bacteria,Urine 2+ /lpf
== END 2025-03-20 18:07 | disposition home or self-care (01) ==
PROVIDERS: Physician Assistant; Emergency Provider Student in an Organized Health Care Education/Training Program; PCP Family Medicine
DX: R51.9 Headache, unspecified (principal); R42 Dizziness and giddiness
CPT/HCPCS: 70450; 70496; 80053; 81001; 83615; 83735; 84550; 85025; 87086; 96374; 99283; 99284; J0131; Q9967

== ENCOUNTER 2025-03-23 12:11 | Outpatient (CLI) | payer BC, SELFPAY ==
--- NOTE | 2025-03-23 12:26 | PC.NURSE ---
Pt presents to the department from the doctor's office for an anesthesia consult to see if she is a candidate for a blood patch. Pt reports that she has had a headache since 03/19. She reports taking tylenol and ibuprofen with mild relief. Pt reports that she was recently evaluated in the ER for this complaint. She reports that pain is constant and throbbing in nature, starting at the front of her head and extending to the back down to her neck. Pt reports pain as an 8 on a 0-10 scale.
[2025-03-23 12:30] VITALS: BP 144/87; PULSE 67; RESP 16; TEMP 36.7; O2SAT 97
--- NOTE | 2025-03-23 12:42 | PC.NURSE ---
Nikko Adams in department, report given on pt.
--- NOTE | 2025-03-23 13:02 | P.PN_ITS ---
Subjective *Date: 03/23/25 *Time: 13:02 Medical Exam Vital signs and Labs for Last 24 Hours: Vital Signs Temp Pulse Resp BP Pulse Ox O2 Del Method 03/23/25 12:30 98.1 F 67 16 144/87 H 97 Room Air Assessment and Plan *Assessment and plan (1) Headache: Status: Acute Qualifiers: Headache chronicity pattern: acute headache Headache type: unspecified Intractability: intractable Qualified Code(s): R51.9 - Headache, unspecified Category: Medical Code(s): R51.9 - Headache, unspecified Plan Patient seen in OB 272, hx reviewed, delivered baby on 03/13/25, headache began on 03/19/25 started at the front of her head and moving to back, no N/V, relieved at times by lying down and taking ibuprofen. Headache intensity has remained the same throughout. Patient reports that headache worsens with baby crying. Educated patient on risks/benefits/alternatives/ including epidural blood patch. Patient wishes to wait until Thursday03/27/25 at her next OB appointment and see how her symptoms are. Instructed patient to continue taking ibuprofen and inc rease fluid intake.
--- NOTE | 2025-03-23 13:02 | PC.NURSE ---
Nikko Adams leaving department, reports that he had a discussion with the patient and she has decided to wait until she follows up with Dr. Negro on Thursday in the office. She doesn't want to get a blood patch at this time.
[2025-03-23 13:10] VITALS: BP 122/67; PULSE 76
== END 2025-03-23 13:24 | disposition home or self-care (01) ==
LOC: OBOUT 12:12 → OB 12:13
PROVIDERS: Visit Provider Obstetrics & Gynecology
DX: O90.89 Other complications of the puerperium, not elsewhere classified (principal); R51.9 Headache, unspecified
CPT/HCPCS: 99231

== ENCOUNTER 2025-04-26 15:59 | Outpatient (CLI) | payer BC, SELFPAY ==
[2025-04-26 16:23] LABS: Hematocrit 38.5 % (37.0-47.0); Hemoglobin 12.5 g/dL (12.2-16.2); Immature Granulocytes % 0.1 %; Mean Corpuscular HGB Conc 32.5 g/dL (31.8-35.4); Mean Corpuscular Hemoglobin 26.4 pg (27.0-31.2); Mean Corpuscular Volume 81.2 fl (81-99); Nucleated Red Blood Cells % 0 %; Platelet Count 251 K/mm3 (142-424); Red Blood Count 4.74 M/mm3 (4.20-5.40); Red Cell Distribution Width-SD 48.2 fL; White Blood Count 7.8 K/mm3 (4.5-13.0)
[2025-04-26 17:43] LABS: Amphetamine/Metha Screen,Urine Negative ng/ml (<1000); Barbiturates Screen,Urine Negative ng/ml (<200); Benzodiazepines Screen,Urine Negative ng/ml (<200); Methadone Screen,Urine Negative ng/ml (<300); Opiate Screen,Urine Negative ng/ml (<300); Phencyclidine Screen,Urine Negative ng/ml (<25)
[2025-04-26 20:03] LABS: Alanine Aminotransferase 50 U/L (12-78); Albumin Level 4.7 g/dl (3.5-5.0); Albumin/Globulin Ratio 1.9 (1.1-1.8); Alkaline Phosphatase 80 U/L (38-126); Anion Gap 15.3 mEq/L (5-15); Aspartate Amino Transferase 40 U/L (14-36); Bilirubin,Total 0.7 mg/dl (0.2-1.3); Blood Urea Nitrogen 8 mg/dl (7-17); Calcium 9.4 mg/dl (8.4-10.2); Carbon Dioxide 22 mmol/L (22.0-30.0); Chloride 105 mmol/L (98-107); Creatinine,Serum 0.70 mg/dl (0.52-1.04); Estimated Glomerular Filt Rate 108 ml/min (>60); GFR (African American) 130 ML/MIN (>60); Globulin 2.5 g/dL (1.3-3.2); Glucose 75 mg/dl (74-100); Potassium 4.3 mmoL/L (3.5-5.1); Sodium 138 mmol/L (136-145); Total Protein,Serum 7.2 g/dl (6.3-8.2)
== END 2025-04-26 23:59 | disposition home or self-care (01) ==
LOC: LAB 15:59
PROVIDERS: Visit Provider Obstetrics & Gynecology
DX: Z01.812 Encounter for preprocedural laboratory examination (principal); N90.89 Other specified noninflammatory disorders of vulva and perineum
CPT/HCPCS: 36415; 80053; 80307; 84702; 85025

== ENCOUNTER 2025-04-28 06:07 | Day surgery (SDC) | payer BC, SELFPAY ==
[2025-04-26 17:00] VITALS: BMI 27.8
[2025-04-28 06:24] VITALS: BP 121/83; PULSE 74; RESP 16; TEMP 36.7; O2SAT 98
[2025-04-28] MEDS: ACETAMINOPHEN 500MG TAB 1000 MG PO (06:39)
[2025-04-28] MEDS: LACTATED RINGERS 1000ML 1,000 ML 25 ML IV (06:45)
--- NOTE | 2025-04-28 07:02 | EXP.ANES.CKL ---
[facility] Disclaimer: The information contained in this section may have been updated after the patient was seen, as this information can be updated by other users. Medical History Hematuria without proteinuria Encounter for preoperative assessment Acquired labial adhesion Acute blood loss anemia Status post normal vaginal delivery with 39 completed weeks gestation Encounter for elective induction of labor Hydronephrosis of right kidney Flank pain in patient Constipation Vaginal bleeding during Nausea and vomiting during Anxiety disorder affecting , antepartum Panic attacks Anxiety Weight gain Emotional lability Surgical History History of placement of ear tubes Family History Other Alcoholism Cancer Diabetes Hypertension Thyroid disorder Social History (Updated 04/28/25 @ 06:36 by Marry Rodriguez RN) Smoking Status: Never smoker alcohol intake: never substance use type: denies use current occupational status: unemployed Travel in the last 8 weeks?: None Have you lived/traveled outside US in past 30 days?: No Contact w/someone who lives/traveled outside US past 30 days?: No Exposure to someone with infectious disease in past 14 days?: No Do you have a fever (greater than 100.4 F or 38 C)?: No Have you tested positive for COVID-19?: No Exposed to someone with COVID-19 in past 14 days?: No Do you have a sore throat?: No Do you have a cough?: No Do you have any weakness?: No Are you experiencing any nausea/vomitting?: No Do you have any diarrhea?: No Are you experiencing any unusual bleeding?: No Do you have any muscle aches/pain?: No Do you have any abdominal pain?: No Are you experiencing loss of taste or smell?: No [facility] Anesthesia Checklist Patient Identification Patient Identification: Verbal (Name & ) Structural Data Admitted From: Home Planned Operative Procedure/s: labial revision Consent for Planned Operative Procedure(s) Verified: Yes NPO Status Verified Time NPO: 00:00 Additional verifications Anesthesia Reactions: No Hx Blood Transfusions: No Blood Transfusion Reaction: No Airway Assessment Mallampati Score:: Class II C-Spine Mobility Assessed: Yes TMJ Mobility Assessed: Yes Dentition: Good Dentition Neurological Assessment Level of Consciousness: Awake, Alert and Appropriate Anesthesia Plan Anesthesia Risk discussed: Yes Anesthesia Plan: Verified ASA Class: II Anesthesia Type: General
[2025-04-28] MEDS: LIDOCAINE 1% 20ML MDV 20 ML (07:40)
[2025-04-28 08:00] VITALS: BP 97/45; PULSE 80; RESP 16; TEMP 36.2; O2SAT 96
--- NOTE | 2025-04-28 08:00 | EXP.OP.NOTE ---
Date of procedure: 04/28/25 Pre-op Diagnosis:: 1. Labial adhesion s/p vaginal delivery Post-op Diagnosis:: 1. Labial adhesion s/p vaginal delivery Procedure performed:: Revision of labial adhesion Surgeon:: Francy Negro DO Cable Splicing Technician(s):: N/a PROJECTS MANAGER:: Davin Carson Anesthesia: MAC Estimated blood loss (mL): 0 Clinical Note:: Mrs Bettie Carrasquillo is a 19 yo P1001 who presents to [facility] for scheduled procedure. She 6 weeks 3 days s/p vaginal delivery. During her 6 week exam bilateral labia minora fused at midline leaving a small opening inferior to urethra. Unable to insert speculum during exam. Second degree perineal laceration was well healed. Operative findings:: 1. Bilateral Labia minora adhered together at midline approximately 5 mm Operative note:: Risks, benefits and alternatives were discussed with the patient. Risks include but are not limited to bleeding, infection, and VTE. Patient voiced understanding and agreed to proceed. She was wheeled back to the operating room and placed under MAC without difficulty. She was placed in dorsal lithotomy position and prepped and draped in the normal sterile fashion. Labial adhesion injected with 1% lidocaine without epinephrine. Metzenbaum scissors used to lyse labial adhesion. Small amount of oozing noted. 3-0 Vicryl Rapide used to ligate labial bleeding. Hemostasis was noted. Patient was awaken from anesthesia without difficulty. She was transported to recovery room in stable condition. Patient will be discharged home when awake and ambulating. She was also given instructions to follow-up in the office in 2 weeks. Condition: stable Disposition: same day Specimens:: N/a Complications:: None
[2025-04-28 08:15] VITALS: BP 120/63; PULSE 77; RESP 17; TEMP 36.2; O2SAT 95
[2025-04-28] MEDS: HYDROMORPHONE 2MG/ML SYRINGE 0.5 MG IV (08:27)
[2025-04-28 08:30] VITALS: BP 124/76; PULSE 76; RESP 17; TEMP 36.2; O2SAT 96
[2025-04-28 08:45] VITALS: BP 131/66; PULSE 83; RESP 18; TEMP 36.2; O2SAT 96
[2025-04-28 10:10] VITALS: TEMP 38
== END 2025-04-28 08:57 | disposition home or self-care (01) ==
PROVIDERS: PCP Family Medicine; Visit Provider Obstetrics & Gynecology
PROC: (CPT 56441; principal; 2025-04-28 07:30)
DX: N90.89 Other specified noninflammatory disorders of vulva and perineum (principal); D62 Acute posthemorrhagic anemia
CPT/HCPCS: 56441; J1100; J1171; J2003; J2250; J2405; J2704; J3010; J7120